=== PATIENT | female | born 1965 | race Caucasian/White ===

== ENCOUNTER 2017-05-03 17:45 | Emergency (ER) | payer OTHER ==
[~2017-05-03] VITALS: Ht 172.7 cm; Wt 136.6 kg
[~2017-05-03 17:45] MED LIST: ALBU0.0912 IH; HYDR25TA32 PO; LOSA50TA39 PO
[2017-05-03 18:57] VITALS: BP 197/96
--- NOTE | 2017-05-03 19:02 | NUR ---
PT AMBULATES BACK TO THE LOBBY
--- NOTE | 2017-05-03 22:40 | NUR ---
PATIENT LEFT WITHOUT BEING SEEN BY DR. DIEGO. NO FURTHER CARE PROVIDED FOR PATIENT.
== END 2017-05-03 22:40 | disposition left against medical advice (07) ==
LOC: MED 17:45
DX: M54.9 Dorsalgia, unspecified (principal); Z53.21 Procedure and treatment not carried out due to patient leaving prior to being seen by health care provider
CPT/HCPCS: 72110; 99281

== ENCOUNTER 2017-12-29 17:42 | Emergency (ER) | payer OTHER ==
[~2017-12-29] VITALS: Ht 170.2 cm; Wt 136.1 kg
[2017-12-29 17:47] VITALS: BP 144/88
--- NOTE | 2017-12-29 17:50 | NUR ---
PT AMBULATED TO ER LOBBY, WAITING FOR AN OPEN ER BED.
--- NOTE | 2017-12-29 19:05 | NUR ---
PATIENT AMBULATED TO BED 4.
--- NOTE | 2017-12-29 19:19 | NUR ---
PT BIB SELF C/O RT ANKLE PAIN, PT STATES2 WEEKS AGO SHE WAS WALKING AND "TWISTED" HER ANKLE, "THOUGHT IT WOULD GO AWAY BUT IT HASNT'. PT AMBULATES EVEN STEADY GAIT, ABLE TO BEAR WEIGHT. MILD SWELLING NOTED TO POSTERIOR ANKLE. +CMS. PT HAS BEEN TAKING TYLENOL AT HOME. PMH HTN, NKDA
[2017-12-29 20:35] VITALS: BP 152/85
== END 2017-12-29 20:35 | disposition home or self-care (01) ==
LOC: MED 17:42
DX: M25.571 Pain in right ankle and joints of right foot (principal); J45.909 Unspecified asthma, uncomplicated; I10 Essential (primary) hypertension; Z79.899 Other long term (current) drug therapy
CPT/HCPCS: 73610; 99284

== ENCOUNTER 2018-10-04 10:15 | Emergency (ER) | payer OTHER ==
[~2018-10-04] VITALS: Ht 170.2 cm; Wt 152.4 kg
[2018-10-04 10:15] VITALS: BP 196/102
[~2018-10-04 10:15] MED LIST changes: -LOSA50TA39 PO; +LOSA50TA66 PO
--- NOTE | 2018-10-04 10:24 | NUR ---
pt ambulated to er bed 09
--- NOTE | 2018-10-04 10:40 | NUR ---
PT CAME TO ER WITH C/O RT KNEE PAIN AT HER BACK. NO REDNESS, NO TENDENESS NOTED. PAIN TO TOUCH 6/10. PER PT, RT LEG BACK PAIN STARTED HURTING SINCE WEDNESDAY, WAS MORE YESTERDAY, TODAY PAIN IS LOW. HAS HX OF HTN. NO ALLERGY TO MEDS. PT SITTING COMFORTBALY IN HER BED. WILL CONITNUE TO MONITOR PT.
[2018-10-04] MEDS ORDERED: IBUPROFEN 400 MG TAB PO ONE (11:05)
--- NOTE | 2018-10-04 11:12 | NUR ---
RAD AT BEDSIDE
--- NOTE | 2018-10-04 11:23 | NUR ---
ultrasound at bedside
[2018-10-04 13:34] VITALS: BP 196/102
--- NOTE | 2018-10-04 13:34 | NUR ---
Patient discharged with BP 189/117 DENIES ADELINA OR MD PADMINI MADE AWARE. Written and verbal after care instructions given and explained. Patient alert, oriented and verbalized understanding of instructions. Ambulatory with steady gait. All questions addressed prior to discharge. ID band removed. Patient advised to follow up with PMD. Rx of NAPROSYN given. Patient educated on indication of medication including possible reaction and side effects. Opportunity to ask questions provided and answered.
== END 2018-10-04 13:34 | disposition home or self-care (01) ==
LOC: MED 10:15
DX: M25.561 Pain in right knee (principal); I10 Essential (primary) hypertension; Z79.899 Other long term (current) drug therapy
CPT/HCPCS: 29505; 73562; 81025; 93971; 99284; Q0092

== ENCOUNTER 2021-05-24 14:03 | Emergency (ER) | payer OTHER ==
[~2021-05-24] VITALS: Ht 170.2 cm; Wt 147.4 kg
[2021-05-24 14:05] VITALS: BP 209/133
[2021-05-24] MEDS ORDERED: HYDROcodone/APAP 5/325 MG 1 TAB TAB PO ONE (14:15)
[2021-05-24] MEDS ORDERED: NAPR-54 PO (15:15)
[2021-05-24] MEDS ORDERED: CYCL-711 PO (15:15)
--- NOTE | 2021-05-24 15:32 | NUR ---
Patient discharged with v/s stable. Written and verbal after care instructions given and explained. Patient alert, oriented and verbalized understanding of instructions. Ambulatory with steady gait. All questions addressed prior to discharge. ID band removed. Patient advised to follow up with PMD. Rx of CYCLOBENZAPRINE HCI, NAPROXEN given. Opportunity to ask questions provided and answered.
== END 2021-05-24 15:31 | disposition home or self-care (01) ==
LOC: MED 14:03
DX: M54.6 Pain in thoracic spine (principal); R07.89 Other chest pain; I10 Essential (primary) hypertension; Z79.899 Other long term (current) drug therapy
CPT/HCPCS: 71045; 81002; 81025; 93005; 99283